=== PATIENT | female | born 1995 | race American Indian/Alaskan Native ===

== ENCOUNTER 2017-08-18 10:52 | Emergency (ER) | payer SELFPAY ==
[2017-08-18 10:59] VITALS: BP 126/87
--- NOTE | 2017-08-18 11:32 | XRay Report ---
RIGHT ANKLE RADIOGRAPHS INDICATION: Pain and swelling. COMPARISON: None similar at this institution. FINDINGS: AP, lateral and oblique right ankle radiographs demonstrate intact mortise, malleoli and talar dome contour. Normal soft tissues. CONCLUSION: No acute radiographic abnormality. Thank you for the opportunity to participate in this patient's care.
--- NOTE | 2017-08-18 14:18 | Emergency Department Report ---
ED Lower Extremity HPI - General Chief Complaint: Extremity Injury, Lower Stated Complaint: FALL RIGHT ANKLE INJURY Time Seen by Provider: 08/18/17 14:17 Source: patient, family Mode of arrival: Wheelchair Limitations: Physical Limitation - History of Present Illness Initial Comments: Patient reported that she twisted her right ankle and she is having pain and swelling. She says she fell and twisted ankle last night. She says she is not able bear weight on her right ankle and it swollen. Pain is 10 out of 10 and throbbing. Worse with movement better with resting. No [id number] medication taken. Complaint: ankle injury, fall -: Last night Injury: Ankle: Right (pain and swelling after twisting) Type of Injury: inversion Place: home Severity: severe Severity scale (0 -10): 10 Improves With: immobilization, rest Worsens With: weight bearing, movement, palpation Context: fall, walking Associated Symptoms: swelling, unable to bear weight. denies: snap/pop sensation, numbness, tingling Treatments Prior to Arrival: other (none) - Related Data Previous Rx's Medication Instructions Recorded Last Taken Type Ibuprofen [Motrin] 600 mg PO Q8H PRN #15 tablet 08/18/17 Unknown Rx Allergies Allergy/AdvReac Type Severity Reaction Status Date / Time No Known Allergies Allergy Unverified 08/18/17 10:59 ED Review of Systems ROS: Stated complaint: FALL RIGHT ANKLE INJURY Other details as noted in HPI Comment: All other systems reviewed and negative Constitutional: no symptoms reported Respiratory: no symptoms reported Cardiovascular: denies: chest pain, palpitations, dyspnea on exertion, edema, syncope, paroxysmal nocturnal dyspnea Gastrointestinal: denies: nausea, vomiting, diarrhea Musculoskeletal: back pain, joint swelling, arthralgia. denies: myalgia Skin: denies: rash Neurological: abnormal gait (right ankle due to injury). denies: headache, weakness, numbness, paresthesias, confusion, vertigo ED Past Medical Hx - Past Medical History Previous Medical History?: No - Surgical History Past Surgical History?: No - Family History Family history: no significant - Social History Smoking Status: Never Smoker Substance Use Type: None - Medications Home Medications: Home Medications Medication Instructions Recorded Confirmed Last Taken Type Ibuprofen [Motrin] 600 mg PO Q8H PRN #15 tablet 08/18/17 Unknown Rx ED Physical Exam - General Limitations: Physical Limitation General appearance: alert, in no apparent distress - Head Head exam: Present: atraumatic, normocephalic, normal inspection - Eye Eye exam: Present: normal appearance, PERRL, EOMI Pupils: Present: normal accommodation - ENT ENT exam: Present: normal exam, normal orophraynx, mucous membranes moist - Neck Neck exam: Present: normal inspection, full ROM. Absent: tenderness, meningismus, lymphadenopathy - Respiratory Respiratory exam: Present: normal lung sounds bilaterally. Absent: respiratory distress, chest wall tenderness, accessory muscle use - Cardiovascular Cardiovascular Exam: Present: regular rate, normal rhythm, normal heart sounds. Absent: systolic murmur, diastolic murmur - GI/Abdominal GI/Abdominal exam: Present: soft, normal bowel sounds. Absent: distended, tenderness, guarding, rebound, rigid, organomegaly, mass, bruit, pulsatile mass , hernia - Extremities Exam Extremities exam: Present: tenderness (right ankle), normal capillary refill, joint swelling (right ankle), other (+2 pulses in all extremities, no neurovascular compromise. No clubbing, cyanosis or edema.). Absent: normal inspection, full ROM (Limited range of motion to right ankle), pedal edema, calf tenderness - Expanded Lower Extremity Exam Right Hip exam: Present: normal inspection, full ROM, pelvic stability. Absent: tenderness, swelling, abrasion, laceration, ecchymosis, deformity, crepidus, dislocation, erythema, external rotation, internal rotation, shortening Upper Leg exam: Present: normal inspection, full ROM. Absent: tenderness, swelling, abrasion, laceration, ecchymosis, deformity, crepidus, dislocation, erythema Knee exam: Present: normal inspection, full ROM, full knee extension. Absent: tenderness, swelling, abrasion, laceration, ecchymosis, deformity, crepidus, dislocation, erythema, effusion, pain w/ pronation/supination, posterior draw sign, pain/laxity with valgus, pain/laxity with varus Lower Leg exam: Present: normal inspection, full ROM. Absent: tenderness, swelling, abrasion, laceration, ecchymosis, deformity, crepidus, dislocation, erythema, palpable cord, Doc's sign Ankle exam: Present: full ROM (Limited range of motion to her right ankle due to pain and swelling), tenderness (8 ankle), swelling. Absent: normal inspection, abrasion, laceration, ecchymosis, deformity, crepidus, dislocation, erythema Foot/Toe exam: Present: normal inspection, full ROM. Absent: tenderness, swelling, abrasion, laceration, ecchymosis, deformity, crepidus, dislocation, erythema, amputation, puncture wound, foreign body, calcaneal tenderness, tenderness at base of 5th metatarsal, nail avulsion, subungual hematoma Neuro vascular tendon exam: Present: no vascular compromise. Absent: pulse deficit, abnormal cap refill, motor deficit, sensory deficit, tendon deficit, extremity cold to touch, pallor, abnormal 2-point discrimination, decreased fine /light touch, foot drop, peroneal nerve deficit, significant pain with passive ROM of distal joint Gait: Positive: observed and limited by pain - Back Exam Back exam: Present: normal inspection, full ROM. Absent: tenderness, CVA tenderness (R), CVA tenderness (L), muscle spasm, paraspinal tenderness, vertebral tenderness, rash noted - Neurological Exam Neurological exam: Present: alert, oriented X3, abnormal gait, reflexes normal ( patient limping right lower extremity due to injured right ankle). Absent: motor sensory deficit - Psychiatric Psychiatric exam: Present: normal affect, normal mood - Skin Skin exam: Present: warm, dry, intact, normal color. Absent: rash ED Course Vital Signs 08/18/17 10:56 Temperature 98.7 F Pulse Rate 84 Respiratory 18 Rate Blood Pressure 126/87 O2 Sat by Pulse 99 Oximetry - Reevaluation(s) Reevaluation #1: 08/18/17 14:28 Patient given Motrin and did milligrams by mouth and [place] 5/325 2 tablets by mouth in emergency room for pain. See procedure note for detail and splinted - Orthopedic Splinting/Casting Injury #1 Side: right Lower Extremity Injury Location: ankle Lower Extremity Immobilizer: Henrique wrap ED Lower Extremity MDM - Radiology Data Radiology results: report reviewed X-ray right ankle reveal no acute abnormality. No soft tissue swelling or bony deformity - Medical Decision Making ED course: Report that she injured her right ankle after falling and twisting rt ankle yesterday. SHe reports pain and swelling to the site. X-ray of right ankle reveals no acute fracture ,dislocation and no soft tissue swelling. Physical finding for superficial swelling to right ankle with tenderness to palpate. Henrique wrap applied to site referred her procedure note for detail. Patient instructed to rest, ice, compress and elevate affected area for 3 days. I also instructed her if she still have pain after 3 days she will need to follow-up with orthopedic doctor. Patient voiced understanding of discharge instruction and treatment plan and discharged home with prescription for Motrin. Critical care attestation.: If time is entered above; I have spent that time in minutes in the direct care of this critically ill patient, excluding procedure time. ED Disposition Clinical Impression: Arthralgia of right ankle Mild ankle sprain Qualifiers: Encounter type: initial encounter Laterality: right Qualified Code(s): S93.401A - Sprain of unspecified ligament of right ankle, initial encounter Disposition: TO HOME OR SELFCARE Is pt being admited?: No Does the pt Need Aspirin: No Condition: Stable Instructions: Arthralgia (ED), Ankle Exercises (GEN), Ankle Sprain (ED), RICE Therapy (ED) Additional Instructions: follow-up with orthopedic doctor in 3 days See discharge instruction and rice protocol Rest for 72 hours Prescriptions: Ibuprofen [Motrin] 600 mg PO Q8H PRN #15 tablet PRN Reason: Pain Referrals: SHELIA PATE MD [Staff Physician] - 08/21/17 Forms: Work/School Release Form(ED)
[2017-08-18] MEDS ORDERED: NORCO 5/325 PO ONE (14:22)
[2017-08-18] MEDS ORDERED: MOTRIN PO ONE (14:22)
== END 2017-08-18 14:52 | disposition home or self-care (01) ==
LOC: ED 10:52
DX: S93.401A Sprain of unspecified ligament of right ankle, initial encounter (principal); W18.30XA Fall on same level, unspecified, initial encounter; Y93.89 Activity, other specified; Y92.89 Other specified places as the place of occurrence of the external cause; Y99.8 Other external cause status
CPT/HCPCS: 99284

== ENCOUNTER 2019-01-01 11:57 | Emergency (ER) | payer OTHER ==
[2019-01-01 12:30] VITALS: BP 127/77
--- NOTE | 2019-01-01 12:31 | Emergency Department Report ---
Blank Doc - Documentation Documentation: This is a 23 y.o. female that presents with n/v, cough, and fever x 1 week. LMP 12/14/18. Patient also reports body aches. She took aleve this morning after waking up her temperature was 101.0. Ordered urine hcg. Fast track for further evaluation.
[2019-01-01 13:43] LABS: HCG Qualitative,Urine Negative (Negative)
[2019-01-01] MEDS ORDERED: TORADOL IM ONE (14:51)
--- NOTE | 2019-01-01 15:05 | Emergency Department Report ---
- General Chief Complaint: Upper Respiratory Infection Stated Complaint: FATIGUE/N/V/FEVER Time Seen by Provider: 01/01/19 12:28 Source: patient Mode of arrival: Ambulatory Limitations: No Limitations - History of Present Illness Initial Comments: 23-year-old female with no significant past medical history presents to the hospital complaining of cough, body aches, and fever. Patient has had a cough productive of green sputum 1 week. Patient developed fever today. She is a generalized bodyaches episodes of posttussive vomiting. She denies shortness of breath, abdominal pain, dysuria, diarrhea, known sick contacts, recent travel, receiving a flu shot. She took Aleve at 5 AM - Related Data Previous Rx's Medication Instructions Recorded Last Taken Type Ibuprofen [Motrin] 600 mg PO Q8H PRN #15 tablet 08/18/17 Unknown Rx Azithromycin [Zithromax Z-SANG] 1 dose PO DAILY 5 Days tab 01/01/19 Unknown Rx Ibuprofen [Motrin] 600 mg PO Q8H PRN #30 tablet 01/01/19 Unknown Rx guaiFENesin/DEXTROMETHORPHAN 1 tab PO BID PRN #14 tab 01/01/19 Unknown Rx [Mucinex DM ER 600-30 mg TAB] Allergies Allergy/AdvReac Type Severity Reaction Status Date / Time No Known Allergies Allergy Verified 01/01/19 11:58 ED Review of Systems ROS: Stated complaint: FATIGUE/N/V/FEVER Other details as noted in HPI Comment: All other systems reviewed and negative ED Past Medical Hx - Past Medical History Previous Medical History?: No - Surgical History Past Surgical History?: No - Social History Smoking Status: Never Smoker Substance Use Type: None - Medications Home Medications: Home Medications Medication Instructions Recorded Confirmed Last Taken Type Ibuprofen [Motrin] 600 mg PO Q8H PRN #15 tablet 08/18/17 Unknown Rx Azithromycin [Zithromax Z-SANG] 1 dose PO DAILY 5 Days tab 01/01/19 Unknown Rx Ibuprofen [Motrin] 600 mg PO Q8H PRN #30 tablet 01/01/19 Unknown Rx guaiFENesin/DEXTROMETHORPHAN 1 tab PO BID PRN #14 tab 01/01/19 Unknown Rx [Mucinex DM ER 600-30 mg TAB] ED Physical Exam - General Limitations: No Limitations - Other Other exam information: General: No limitations, patient is alert in no acute distress Head exam: Atraumatic, normocephalic Eyes exam: Normal appearance ENT: Moist mucous membrane Neck exam: Normal inspection, full range of motion, no meningismus nontender Respiratory exam: Clear to auscultation bilateral, no wheezes, rales, crackles Cardiovascular: Normal rate and rhythm, normal heart sounds Abdomen: Soft, nondistended, and nontender, with normal bowel sounds, no rebound, or guarding Extremity: Full range of motion normal inspection no deformity Back: Normal Inspection, full range of motion, no tenderness Neurologic: Alert, oriented x3, cranial nerves intact, no motor or sensory deficit Psychiatric: normal affect, normal mood Skin: Warm, dry, intact ED Course Vital Signs 01/01/19 12:29 Temperature 98.7 F Pulse Rate 104 H Respiratory 16 Rate Blood Pressure 127/77 O2 Sat by Pulse 100 Oximetry ED Medical Decision Making - Medical Decision Making Patient be treated with a Z-Sang and symptomatic treatment for viral syndrome versus bronchitis. Received Toradol IM in the ED - Differential Diagnosis viral syndrome, bronchitis, pneumonia, influenza Critical Care Time: No Critical care attestation.: If time is entered above; I have spent that time in minutes in the direct care of this critically ill patient, excluding procedure time. ED Disposition Clinical Impression: Acute bronchitis, Viral syndrome Disposition: - TO HOME OR SELFCARE Is pt being admited?: No Does the pt Need Aspirin: No Condition: Stable Instructions: Acute Bronchitis (ED), Viral Syndrome (ED) Additional Instructions: Take the medication as prescribed. Follow up with your doctor or the clinic/doctor provided. Return if symptoms worsen as indicated by your discharge instructions Prescriptions: Azithromycin [Zithromax Z-SANG] 1 dose PO DAILY 5 Days tab guaiFENesin/DEXTROMETHORPHAN [Mucinex DM ER 600-30 mg TAB] 1 tab PO BID PRN #14 tab PRN Reason: Cough Ibuprofen [Motrin] 600 mg PO Q8H PRN #30 tablet PRN Reason: Pain Referrals: SOWMYA BOUCHER MD [Primary Care Provider] - 3-5 Days Time of Disposition: 15:05
== END 2019-01-01 15:09 | disposition home or self-care (01) ==
LOC: ED 11:57
DX: J40 Bronchitis, not specified as acute or chronic (principal); B34.9 Viral infection, unspecified; Z79.899 Other long term (current) drug therapy
CPT/HCPCS: 81025; 96372; 99283; J1885